=== PATIENT | female | born 1980 | race African-American/Black ===

== ENCOUNTER 2018-05-21 23:38 | Inpatient (IN) | payer OTHER ==
[~2018-05-21] VITALS: Ht 157.5 cm; Wt 95.0 kg
--- NOTE | ~2018-05-21 | EKG ---
[address] [address] ELECTROCARDIOGRAM REPORT Name: FERMÍN LAWTON Room #: 218-P ADM IN M.R.#: [id number] Admission: 05/22/18 Attend Phys: Boris Hodge MD Discharge: Date of : 78 Report #: [id number] THIS REPORT FOR: //name// [facility] ED Test Date: 2018-05-22 Test Time: 01:11:41 Pat Name: FERMÍN LAWTON Department: Room: 218 Gender: F Contracting Support Specialist: Filiberto METZGER : 1980 Requested By: Louis Ferrer Order Number: [id number] MD: Shane White Measurements Intervals [place] Rate: 76 P: NV: QRS: -56 QRSD: 140 T: 87 QT: 453 QTc: 510 Interpretive Statements sinus rhythm with PACs. Nonspecific IVCD with LAD No previous ECG available for comparison Electronically Signed On 05-22-2018 14:22:14 POLICE RADIO DISPATCHER by Shane White [email or web address] <ELECTRONICALLY SIGNED> By: Shane White MD 05/22/18 1422 0111 0111 Shane White MD /YUNIOR
--- NOTE | ~2018-05-21 | HC ---
[facility] [place] [address] [place] [address] CONSULTATION Name: FERMÍN LAWTON Room #: 218-P [facility] IN M.R.#: [id number] Admission: 05/22/18 Attend Phys: Boris Hodge MD Discharge: Date of : 78 Report #: [id number] THIS REPORT FOR: //name// CC: Boris Hodge Javier Akkulugari DATE OF SERVICE: 05/22/2018 REASON FOR CONSULTATION: Life-threatening hyperkalemia and end-stage renal disease. HISTORY OF PRESENT ILLNESS: Those were obtained from the medical record as the patient is not able to provide me with any history. She is running through episodes of hypoglycemia. She has acute mental status issue. She presented to the Emergency Room last night complaining of weakness throughout her body. She is a dialysis patient, maintained on hemodialysis every Saturday, Saturday and Saturday. As obtained out, she stays in the [facility]. She is utilizing left IJ tunneled catheter. She refused to her dialysis yesterday. She presented to the Emergency Room where she was found to have a life-threatening hyperkalemia with a potassium level of 8.7 on presentation. I am being asked to manage her end-stage renal disease. PAST MEDICAL HISTORY: 1. Diabetes mellitus. 2. Hypertension. 3. End-stage renal disease, maintained on dialysis. 4. . 5. Anxiety. MEDICATIONS: 1. Amlodipine. 2. Aspirin. 3. Atorvastatin. 4. Carvedilol. 5. Entresto. 6. Lasix. 7. Renvela. 8. Levothyroxine. 9. Albuterol. FAMILY HISTORY: Unobtainable given the patient's mental status. SOCIAL HISTORY: Unobtainable given the patient's mental status. REVIEW OF SYSTEMS: Completely unobtainable given the patient's mental status. [facility] [address] [place] [address] CONSULTATION Name: FERMÍN LAWTON Room #: 218-P [facility] IN [facility]#: [id number] Admission: 05/22/18 Attend Phys: Boris Hodge MD Discharge: Date of : 78 Report #: [id number] PHYSICAL EXAMINATION: GENERAL: The patient is confused. She is not answering questions. She has acute mental status changes with a blood sugar running in the 32. VITAL SIGNS: Blood pressure is 150/87, temperature 37.2. HEAD AND NECK: No bruit, no thyromegaly. CHEST: Left IJ tunneled catheter. No crackles. CARDIOVASCULAR: No rub detected. Regular. ABDOMEN: Soft, nontender. LOWER EXTREMITIES: +4 edema. LABORATORY VALUES: Reviewed. Hemoglobin is 9.7. Sodium on presentation was 131, potassium of 8.7, BUN was 85, creatinine was 9.6. She is still running into issues with her hypoglycemia and most recent blood sugar readings were 32, 38, 91, 133, 81. ASSESSMENT, IMPRESSION AND PLAN: 1. Life-threatening hyperkalemia in an end-stage renal disease patient in need for emergent dialysis. 2. Hypoglycemia 3. Diabetes mellitus. 4. Hypertension. 5. Noncompliance. 6. The patient received appropriate therapy for her hyperkalemia including calcium gluconate. I will initiate the appropriate emergent dialysis treatment for the patient. We will reevaluate her labs after dialysis. 7. Might need to move to the ICU. 8. Keep on D10 given her persistent hypoglycemia. 9. We will continue to follow along. <ELECTRONICALLY SIGNED> By: Adilene Calderon MD 05/25/18 0811 1001 1152 Adilene Calderon MD /nt
[2018-05-21 23:40] VITALS: BP 178/100
[2018-05-21] MEDS ORDERED: HUMALOG KW100 UNIT/1 SUBQ (23:55)
[2018-05-21] MEDS ORDERED: ASPIR 8181 MG PO (23:56)
[2018-05-21] MEDS ORDERED: LANTUS SOL100 UNIT/1 SUBQ (23:56)
[2018-05-21] MEDS ORDERED: NORVASC2.5 MG PO (23:56)
[2018-05-21] MEDS ORDERED: PHOSLO667 MG PO (23:57)
[2018-05-21] MEDS ORDERED: COREG25 MG PO (23:57)
[2018-05-21] MEDS ORDERED: ATORVASTATIN CA40 MG PO (23:57)
[2018-05-21] MEDS ORDERED: CHANTIX0.5 MG PO (23:58)
[2018-05-21] MEDS ORDERED: LASIX 40 MG TAB40 M2 PO (23:59)
[2018-05-21] MEDS ORDERED: ENTRESTO 24 MG1 EACH PO (23:59)
[2018-05-22] MEDS ORDERED: RENAGEL800 MG PO
[2018-05-22] MEDS ORDERED: OXYCODONE PO (00:01)
[2018-05-22] MEDS ORDERED: NEURONTIN 300300 M1 PO (00:01)
[2018-05-22] MEDS ORDERED: HYDRALAZINE 2525 MG PO (00:02)
[2018-05-22] MEDS ORDERED: EFFEXOR XR37.5 MG PO (00:03)
[2018-05-22] MEDS ORDERED: ISOSORBIDE DINI30 MG PO (00:03)
[2018-05-22] MEDS ORDERED: SYNTHROID75 MCG PO (00:03)
[2018-05-22] MEDS ORDERED: HYDROXYZINE HCL25 M1 PO (00:04)
[2018-05-22] MEDS ORDERED: VITAMIN D3400 UNIT PO (00:04)
[2018-05-22] MEDS ORDERED: LORAZEPAM 0.50.5 M1 PO (00:05)
[2018-05-22] MEDS ORDERED: TYLENOL325 M1 PO (00:05)
[2018-05-22] MEDS ORDERED: ONDANSETRON HCL4 M2 PO (00:06)
[2018-05-22] MEDS ORDERED: PROAIR HFA8.5 GM INH (00:06)
[2018-05-22 00:37] LABS: HEMOGLOBIN 9.7 gm/dL (12.0-15.0); MCH 32.1 pg (26.0-34.0); MCHC 33.4 g/dL (28.0-37.0); MCV 96.2 fL (80.0-100.0); RBC 3.01 mil/uL (4.20-5.00); RDW 15.1 % (10.5-14.5); WBC 8.6 thou/uL (4.0-11.0)
[2018-05-22 00:45] LABS: ALBUMIN 2.6 g/dL (3.4-5.0); CALCIUM 8.6 mg/dL (8.5-10.1); CREATININE 9.6 mg/dL (0.6-1.0); TOTAL BILIRUBIN 0.3 mg/dL (<0.1-1.0); TOTAL PROTEIN 6.8 g/dL (6.4-8.2)
[2018-05-22 01:44] LABS: POTASSIUM 8.7 mmol/L (3.5-5.1)
[2018-05-22 03:24] VITALS: BP 167/100
[2018-05-22 04:57] LABS: CALCIUM 8.4 mg/dL (8.5-10.1); CREATININE 9.7 mg/dL (0.6-1.0)
[2018-05-22 04:59] LABS: POTASSIUM 8.2 mmol/L (3.5-5.1)
[2018-05-22 08:00] VITALS: BP 151/87
[2018-05-22 16:00] VITALS: BP 178/110
[2018-05-22 16:05] VITALS: BP 186/100
[2018-05-22 18:29] LABS: HEMATOCRIT 28.1 % (37.0-47.0); HEMOGLOBIN 9.4 gm/dL (12.0-15.0); MCH 32.1 pg (26.0-34.0); MCHC 33.3 g/dL (28.0-37.0); MCV 96.3 fL (80.0-100.0); RBC 2.92 mil/uL (4.20-5.00); RDW 14.8 % (10.5-14.5); WBC 6.5 thou/uL (4.0-11.0)
[2018-05-22 18:46] LABS: ALBUMIN 2.2 g/dL (3.4-5.0); ANION GAP 8 mmol/L (7-16); BUN 40 mg/dL (7-18); CALCIUM 8.1 mg/dL (8.5-10.1); CHLORIDE 98 mmol/L (98-107); CO2 30 mmol/L (21-32); GLUCOSE 117 mg/dL (74-106); MAGNESIUM 2.3 mg/dL (1.8-2.4); SGOT 44 U/L (15-37); SGPT < 6 U/L (30-65); SODIUM 136 mmol/L (136-145); TOTAL BILIRUBIN 0.3 mg/dL (<0.1-1.0); TOTAL PROTEIN 5.9 g/dL (6.4-8.2)
[2018-05-22 18:47] LABS: CREATININE 5.3 mg/dL (0.6-1.0); POTASSIUM 5.4 mmol/L (3.5-5.1)
[2018-05-22 20:30] VITALS: BP 183/96
[2018-05-22] MEDS ORDERED: RENVELA800 MG PO (20:46)
[2018-05-22] MEDS ORDERED: CHANTIX0.5 MG PO (20:49)
[2018-05-22] MEDS ORDERED: ROXICODONE5 M2 PO (20:58)
[2018-05-23 00:45] VITALS: BP 143/66
[2018-05-23 04:35] VITALS: BP 162/87
[2018-05-23 06:38] LABS: HEMATOCRIT 24.7 % (37.0-47.0); MCH 31.2 pg (26.0-34.0); MCHC 32.5 g/dL (28.0-37.0); MCV 96.1 fL (80.0-100.0); RBC 2.57 mil/uL (4.20-5.00); RDW 14.5 % (10.5-14.5); WBC 6.7 thou/uL (4.0-11.0)
[2018-05-23 06:43] LABS: CALCIUM 7.7 mg/dL (8.5-10.1); CREATININE 5.8 mg/dL (0.6-1.0); MAGNESIUM 2.3 mg/dL (1.8-2.4); POTASSIUM 5.9 mmol/L (3.5-5.1)
[2018-05-23 08:13] VITALS: BP 154/82
[2018-05-23 12:57] VITALS: BP 205/103
[2018-05-23 17:00] VITALS: BP 157/89
[2018-05-23 20:45] VITALS: BP 199/98
[2018-05-24 04:54] VITALS: BP 176/86
[2018-05-24 06:33] LABS: HEMATOCRIT 25.9 % (37.0-47.0); HEMOGLOBIN 8.6 gm/dL (12.0-15.0); MCHC 33.2 g/dL (28.0-37.0); MCV 96.4 fL (80.0-100.0); RBC 2.69 mil/uL (4.20-5.00); RDW 14.3 % (10.5-14.5); WBC 7.1 thou/uL (4.0-11.0)
[2018-05-24 06:52] LABS: ALBUMIN 2.4 g/dL (3.4-5.0); CALCIUM 8.4 mg/dL (8.5-10.1); CREATININE 4.3 mg/dL (0.6-1.0); PHOSPHORUS 4.9 mg/dL (2.5-4.9); POTASSIUM 5.3 mmol/L (3.5-5.1)
[2018-05-24 07:10] VITALS: BP 172/99
[2018-05-24 11:47] VITALS: BP 177/95
[2018-05-24 17:03] VITALS: BP 165/92
[2018-05-24 20:45] VITALS: BP 165/105
[2018-05-25 00:36] VITALS: BP 119/61
[2018-05-25 04:45] VITALS: BP 188/105
[2018-05-25 06:57] LABS: HEMATOCRIT 27.3 % (37.0-47.0); MCH 31.9 pg (26.0-34.0); MCHC 33.1 g/dL (28.0-37.0); MCV 96.5 fL (80.0-100.0); RBC 2.82 mil/uL (4.20-5.00); RDW 13.9 % (10.5-14.5); WBC 9.7 thou/uL (4.0-11.0)
[2018-05-25 07:06] LABS: CALCIUM 8.9 mg/dL (8.5-10.1); CREATININE 4.9 mg/dL (0.6-1.0); MAGNESIUM 2.3 mg/dL (1.8-2.4)
[2018-05-25 07:12] LABS: POTASSIUM 6.1 mmol/L (3.5-5.1)
[2018-05-25 08:06] VITALS: BP 190/116
[2018-05-25 12:05] VITALS: BP 206/154
[2018-05-25 16:03] VITALS: BP 171/104
[2018-05-25 19:42] VITALS: BP 154/87
[2018-05-26 03:11] VITALS: BP 186/108
[2018-05-26 03:58] LABS: CALCIUM 8.1 mg/dL (8.5-10.1); POTASSIUM 5.4 mmol/L (3.5-5.1)
[2018-05-26 04:01] LABS: CREATININE 3.7 mg/dL (0.6-1.0)
[2018-05-26 04:25] LABS: HEMATOCRIT 25.3 % (37.0-47.0); HEMOGLOBIN 8.3 gm/dL (12.0-15.0); MCH 31.5 pg (26.0-34.0); MCHC 32.8 g/dL (28.0-37.0); RBC 2.63 mil/uL (4.20-5.00); RDW 14.5 % (10.5-14.5)
[2018-05-26 12:25] VITALS: BP 189/108
[2018-05-26 19:45] VITALS: BP 126/84; BP 163/88
[2018-05-27 04:49] VITALS: BP 190/102
[2018-05-27 08:00] VITALS: BP 170/117
[2018-05-27 11:40] VITALS: BP 174/96
[2018-05-27 16:30] VITALS: BP 160/99
[2018-05-27 19:55] VITALS: BP 128/52
[2018-05-28 04:45] VITALS: BP 191/101
[2018-05-28 11:54] VITALS: BP 169/110
[2018-05-28 16:27] VITALS: BP 193/112
[2018-05-28 19:31] VITALS: BP 179/111
[2018-05-29 06:08] VITALS: BP 189/111
[2018-05-29 07:15] VITALS: BP 157/103
[2018-05-29] MEDS ORDERED: OXYCODONE-APAP1 EAC6 PO (10:32)
[2018-05-29] MEDS ORDERED: CEFAZ1 ADV IV (10:32)
[2018-05-29 11:12] VITALS: BP 177/106
== END 2018-05-29 12:55 | DRG 640 ==
LOC: ER 23:38 → 2N 05-22 01:36 → EROBS 05-22 01:36 → 2N 05-22 02:10
PROVIDERS: Emergency Medicine; Hospitalist; Internal Medicine; Nurse Practitioner Acute Care
PROC: 5A1D70Z Performance of Urinary Filtration, Intermittent, Less than 6 Hours Per Day (ICD-10-PCS; principal; 2018-05-22)
PROC: 5A1D70Z Performance of Urinary Filtration, Intermittent, Less than 6 Hours Per Day (ICD-10-PCS; 2018-05-23)
PROC: 5A1D70Z Performance of Urinary Filtration, Intermittent, Less than 6 Hours Per Day (ICD-10-PCS; 2018-05-25)
PROC: 5A1D70Z Performance of Urinary Filtration, Intermittent, Less than 6 Hours Per Day (ICD-10-PCS; 2018-05-26)
PROC: 5A1D70Z Performance of Urinary Filtration, Intermittent, Less than 6 Hours Per Day (ICD-10-PCS; 2018-05-28)
DX: E87.5 Hyperkalemia (principal); N18.6 End stage renal disease; I50.22 Chronic systolic (congestive) heart failure; G93.40 Encephalopathy, unspecified; M84.459A Pathological fracture, hip, unspecified, initial encounter for fracture; I13.2 Hypertensive heart and chronic kidney disease with heart failure and with stage 5 chronic kidney disease, or end stage renal disease; F41.9 Anxiety disorder, unspecified; E11.649 Type 2 diabetes mellitus with hypoglycemia without coma; F32.9 Major depressive disorder, single episode, unspecified; E03.9 Hypothyroidism, unspecified; J45.909 Unspecified asthma, uncomplicated; D63.8 Anemia in other chronic diseases classified elsewhere; E11.22 Type 2 diabetes mellitus with diabetic chronic kidney disease; B95.61 Methicillin susceptible Staphylococcus aureus infection as the cause of diseases classified elsewhere; Y84.1 Kidney dialysis as the cause of abnormal reaction of the patient, or of later complication, without mention of misadventure at the time of the procedure; Z91.19 Patient's noncompliance with other medical treatment and regimen; Z86.14 Personal history of Methicillin resistant Staphylococcus aureus infection; Y92.89 Other specified places as the place of occurrence of the external cause; Z79.82 Long term (current) use of aspirin; Z79.899 Other long term (current) drug therapy; Z88.8 Allergy status to other drugs, medicaments and biological substances; Z91.040 Latex allergy status; Z87.891 Personal history of nicotine dependence
CPT/HCPCS: 10081; 32100

== ENCOUNTER 2018-08-31 19:15 | Emergency (ER) | payer OTHER ==
[~2018-08-31] VITALS: Ht 157.5 cm; Wt 90.3 kg
[~2018-08-31 19:15] MED LIST: ASPIR 8181 MG PO; ATORVASTATIN CA40 MG PO; CEFAZ1 ADV IV; CHANTIX0.5 MG PO; COREG25 MG PO; EFFEXOR XR37.5 MG PO; ENTRESTO 24 MG1 EACH PO; HUMALOG KW100 UNIT/1 SUBQ; HYDRALAZINE 2525 MG PO; HYDROXYZINE HCL25 M1 PO; ISOSORBIDE DINI30 MG PO; LANTUS SOL100 UNIT/1 SUBQ; LASIX 40 MG TAB40 M2 PO; LORAZEPAM 0.50.5 M1 PO; NEURONTIN 300300 M1 PO; NORVASC2.5 MG PO; ONDANSETRON HCL4 M2 PO; OXYCODONE PO; OXYCODONE-APAP1 EAC6 PO; PHOSLO667 MG PO; PROAIR HFA8.5 GM INH; RENAGEL800 MG PO; RENVELA800 MG PO; ROXICODONE5 M2 PO; SYNTHROID75 MCG PO; TYLENOL325 M1 PO; VITAMIN D3400 UNIT PO
[2018-08-31 20:07] LABS: ABSOLUTE NEUTROPHILS 5.3 thou/uL (1.4-8.2); BASOPHILS 0.5 % (0.0-2.0); EOSINOPHILS 3.5 % (0.0-3.0); HEMATOCRIT 36.1 % (37.0-47.0); HEMOGLOBIN 11.5 gm/dL (12.0-15.0); LYMPHOCYTES 8.9 % (24.0-44.0); MCH 30.2 pg (26.0-34.0); MCHC 31.8 g/dL (28.0-37.0); MCV 94.9 fL (80.0-100.0); MONOCYTES 9.5 % (1.0-8.0); PLATELET COUNT 114 thou/uL (150-400); POLYS 77.6 % (36.0-66.0); RBC 3.81 mil/uL (4.20-5.00); RDW 15.4 % (10.5-14.5); WBC 6.9 thou/uL (4.0-11.0)
[2018-08-31 20:11] LABS: ANION GAP 13 mmol/L (7-16); BUN 57 mg/dL (7-18); CALCIUM 8.4 mg/dL (8.5-10.1); CHLORIDE 98 mmol/L (98-107); CO2 24 mmol/L (21-32); CREATININE 5.8 mg/dL (0.6-1.0); GLUCOSE 188 mg/dL (74-106); POTASSIUM 5.5 mmol/L (3.5-5.1); SODIUM 135 mmol/L (136-145)
[2018-08-31 20:17] LABS: APTT 35.7 Seconds (24.5-32.8); INR 1.1
[2018-08-31 20:19] LABS: ALBUMIN 2.7 g/dL (3.4-5.0); MAGNESIUM 2.2 mg/dL (1.8-2.4); SGOT 31 U/L (15-37); SGPT 18 U/L (30-65); TOTAL BILIRUBIN 0.5 mg/dL (<0.1-1.0); TOTAL PROTEIN 6.9 g/dL (6.4-8.2); TROPONIN-I <0.06 ng/mL (<0.06)
[2018-08-31] MEDS ORDERED: AMOXICILLIN875 MG PO (21:41)
[2018-08-31] MEDS ORDERED: PROMETHAZINE-C473 ML PO (21:41)
[2018-08-31] MEDS ORDERED: FLOVENT DISKU100 MCG INH (21:41)
[2018-08-31 22:30] VITALS: BP 161/100
--- NOTE | 2018-09-01 09:04 | EKG ---
[place] [address] [facility] [place] [address] ELECTROCARDIOGRAM REPORT Name: FERMÍN LAWTON Room #: DEP [facility] Jones#: [id number] ������������������ Admission: 08/31/18 ������������������ Attend Phys: Discharge: 08/31/18 ������������������ Date of : 78 Report #: [id number] ����������������������������������������������������������������� [id number] THIS REPORT FOR: //name// [facility] ED Test Date: 2018-08-31 Test Time: 19:25:53 Pat Name: FERMÍN LAWTON Department: Room: Gender: F Lens Engraver: AUDIE : 1980 Requested By: Ajith Simmons Order Number: [id number] MD: Damon Kincaid Measurements Intervals [place] Rate: 90 P: 15 LA: 166 QRS: -31 QRSD: 94 T: 75 QT: 377 QTc: 462 Interpretive Statements Sinus rhythm Left axis deviation Nonspecific T wave abnormality Compared to ECG 05/22/2018 01:11:41 Atrial premature complexes are no longer present Electronically Signed On 09-01-2018 9:03:58 CDT by Damon Kincaid [email or web address] ��������������������������������������������� <ELECTRONICALLY SIGNED> ���������������������������������������� By: Damon Kincaid MD, [facility] ��������������������������������������������� 09/01/18902 24 24 Damon Kincaid MD, FACC /EPI
== END 2018-08-31 22:30 ==
LOC: ER 19:15
PROVIDERS: Emergency Medicine
DX: J45.909 Unspecified asthma, uncomplicated (principal); R04.2 Hemoptysis; I13.2 Hypertensive heart and chronic kidney disease with heart failure and with stage 5 chronic kidney disease, or end stage renal disease; N18.6 End stage renal disease; E88.09 Other disorders of plasma-protein metabolism, not elsewhere classified; R10.84 Generalized abdominal pain; R19.7 Diarrhea, unspecified; E10.22 Type 1 diabetes mellitus with diabetic chronic kidney disease; E03.9 Hypothyroidism, unspecified; F32.9 Major depressive disorder, single episode, unspecified; F41.9 Anxiety disorder, unspecified; I50.22 Chronic systolic (congestive) heart failure; E21.3 Hyperparathyroidism, unspecified; G62.9 Polyneuropathy, unspecified; M19.90 Unspecified osteoarthritis, unspecified site; G89.4 Chronic pain syndrome; Z86.2 Personal history of diseases of the blood and blood-forming organs and certain disorders involving the immune mechanism; Z98.890 Other specified postprocedural states; Z99.2 Dependence on renal dialysis; Z87.891 Personal history of nicotine dependence; Z91.040 Latex allergy status; Z91.013 Allergy to seafood

== ENCOUNTER 2018-12-05 19:42 | Inpatient (IN) | payer OTHER ==
[~2018-12-05] VITALS: Ht 157.5 cm; Wt 88.9 kg
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
[~2018-12-05 19:42] MED LIST changes: +AMOXICILLIN875 MG PO; +FLOVENT DISKU100 MCG INH; +PROMETHAZINE-C473 ML PO
[2018-12-05 19:43] VITALS: BP 130/76
[2018-12-05] MEDS ORDERED: OMEPRAZOLE40 MG PO (19:54)
[2018-12-05] MEDS ORDERED: MELATONIN3 MG PO (19:54)
[2018-12-05] MEDS ORDERED: PRO-STAT LIQUID30 ML PO (19:55)
[2018-12-05] MEDS ORDERED: CLONIDINE0.1 PO (19:56)
[2018-12-05] MEDS ORDERED: HALLS3.2 MG PO (19:57)
[2018-12-05] MEDS ORDERED: ROBITUSSIN100 MG/53 PO (19:57)
[2018-12-05] MEDS ORDERED: ATARAX PO (19:59)
[2018-12-05] MEDS ORDERED: ONDANSETRON HCL4 M2 PO (20:00)
[2018-12-05] MEDS ORDERED: OXYCODON-ACETA1 EAC1 PO (20:00)
[2018-12-05] MEDS ORDERED: MIRALAX17 GM PO (20:01)
[2018-12-05] MEDS ORDERED: VENTOLIN HFA 1818 GM INH (20:02)
[2018-12-05] MEDS ORDERED: ZYRTEC 10 MG TA10 MG PO (20:03)
[2018-12-05] MEDS ORDERED: NEURONTIN 400400 M1 PO (20:04)
[2018-12-05] MEDS ORDERED: ENTRESTO 24 MG1 EACH PO (20:04)
[2018-12-05] MEDS ORDERED: FLOVENT HFA 4444 MCG INH (20:04)
[2018-12-05] MEDS ORDERED: LASIX 40 MG TAB40 M2 PO (20:04)
[2018-12-05] MEDS ORDERED: IMDUR 30 MG TAB30 M1 PO (20:05)
[2018-12-05] MEDS ORDERED: HYDRALAZINE 2525 MG PO (20:05)
[2018-12-05] MEDS ORDERED: ATIVAN0.5 MG PO (20:06)
[2018-12-05] MEDS ORDERED: LANTUS SUBQ (20:07)
[2018-12-05 20:22] LABS: ABSOLUTE NEUTROPHILS 6.4 thou/uL (1.4-8.2); BASOPHILS 0.9 % (0.0-2.0); EOSINOPHILS 7.3 % (0.0-3.0); HEMATOCRIT 35.9 % (37.0-47.0); HEMOGLOBIN 11.9 gm/dL (12.0-15.0); LYMPHOCYTES 8.7 % (24.0-44.0); MCH 31.7 pg (26.0-34.0); MCHC 33.2 g/dL (28.0-37.0); MCV 95.5 fL (80.0-100.0); MONOCYTES 6.8 % (1.0-8.0); PLATELET COUNT 139 thou/uL (150-400); POLYS 76.3 % (36.0-66.0); RBC 3.76 mil/uL (4.20-5.00); RDW 15.8 % (10.5-14.5); WBC 8.3 thou/uL (4.0-11.0)
[2018-12-05 20:50] LABS: BUN 96 mg/dL (7-18); CALCIUM 8.3 mg/dL (8.5-10.1); CHLORIDE 90 mmol/L (98-107); CO2 22 mmol/L (21-32); CREATININE 8.5 mg/dL (0.6-1.0); GLUCOSE 112 mg/dL (74-106); TROPONIN-I <0.06 ng/mL (<0.06)
[2018-12-05 20:55] LABS: ANION GAP 5 mmol/L (7-16)
[2018-12-05 20:56] LABS: POTASSIUM 7.1 mmol/L (3.5-5.1); SODIUM 117 mmol/L (136-145)
--- NOTE | 2018-12-05 20:58 | NUR ---
CRITICAL LAB VALUES - K+ 7.1 AND NA - 117. PHYSICIAN AND NURSE NOTIFIED
[2018-12-06] VITALS (7 sets, daily range): BP systolic 119–145; BP diastolic 75–103
--- NOTE | 2018-12-06 05:33 | NUR ---
ADMIT:PT ADMITTED FROM ED WITH ESRD,HYPERKALEMIA,NON-COMPLIANT.PT RESIDED AT [facility].SHE DOES DIALYSIS THREE TIMES A WEEK BUT SHE DID MISS ALL THREE DAYS THIS WEEK,LAST TIME SHE HAD DIALYSIS WAS LAST SATURDAY JUST BECAUSE SHE GOT TIRED OF IT SHE STATED.SHE HAS A DAILYSIS CATHETER TO LEFT UPPER CHEST THAT IS MISSING A SUTURE.SHE ALSO HAS A FISTULA LEFT FA,THAT HAS BRUIL AND THRILL BUT SHE DOES NOT USE IT FOR DIALYSIS SINCE IT HURTS PER PT.ASSESSMENT ADMISSION COMPLETED.VSS.SR ON MONITOR.PT REFUSED TO WEAR GOWN.HAS MUTIPLE SCRATCHES TO HER ENTIRE BODY FROM BEING DRY AND ITCHY.PAIN MEDS GIVEN FOR C/O PAIN TO LEFT FA WITH PARTIAL RELIEF.POC IS TO HAVE DIALYSIS THIS AM.
[2018-12-06 06:12] LABS: CALCIUM 8.2 mg/dL (8.5-10.1); CREATININE 8.7 mg/dL (0.6-1.0)
[2018-12-06 06:25] LABS: POTASSIUM 7.3 mmol/L (3.5-5.1)
[2018-12-06 09:20] LABS: ALBUMIN 3.2 g/dL (3.4-5.0); TOTAL PROTEIN 6.5 g/dL (6.4-8.2)
[2018-12-06 09:47] LABS: TSH 12.586 uIU/mL (0.358-3.740)
--- NOTE | 2018-12-06 11:05 | EKG ---
[address] [address] ELECTROCARDIOGRAM REPORT Name: FERMÍN LAWTON Room #: 211-P ADM IN M.R.#: [id number] ������������������ Admission: 12/05/18 ������������������ Attend Phys: Joe Batres MD Discharge: ������������������ Date of : 78 Report #: [id number] ����������������������������������������������������������������� [id number] THIS REPORT FOR: //name// [facility] ED Test Date: 2018-12-05 Test Time: 20:03:47 Pat Name: FERMÍN LAWTON Department: Room: 211 Gender: F Asw/Asuw Tactical Air Controller: EVANGELINA : 1980 Requested By: Mukund Sinha Order Number: [id number] MD: Chris Simons Measurements Intervals [place] Rate: 63 P: 6 MD: 221 QRS: -57 QRSD: 121 T: 80 QT: 444 QTc: 455 Interpretive Statements Sinus rhythm Prolonged MD interval Nonspecific IVCD with LAD Inferior infarct, old Anterior infarct, old Baseline wander in lead(s) V6 Compared to ECG 08/31/2018 19:25:53 First degree AV block now present Intraventricular conduction delay now present Myocardial infarct finding now present Left-axis deviation no longer present T-wave abnormality no longer present Electronically Signed On 12-06-2018 11:05:05 CDT by Chris Simons [email or web address] ��������������������������������������������� <ELECTRONICALLY SIGNED> ���������������������������������������� By: Chris Simons MD ��������������������������������������������� 12/06/18 1105 02 02 Chris Simons MD /EPI
--- NOTE | 2018-12-06 18:44 | NUR ---
ASSUMED CARE OF PATIENT AT 0700. PATIENT IS A&O X 4. ASSESSMENTS CHARTED. PATIENT IS SR ON TELE. PATIENT HAD HEMODIALYSIS THIS AM WITH 3L OFF. PATIENT TOLERATED WELL. PATIENT COMPLAINS OF BILATERAL HAND NUMBNESS WITH PINS AND NEEDLE SENSATION. PATIENT TAKING OXYCODONE WITH MINIMAL RELIEF. PATIENT HAS LIMB LEAD ALERT ON LEFT ARM. PATIENT IS ANEURIC. SHE ADMITTED THAT SHE MISSED DIALYSIS ALL WEEK BECAUSE, "I JUST DIDN'T WANT TO GO". PATIENT TO CONTINUE WITH POC.
[2018-12-07 01:26] VITALS: BP 138/82
[2018-12-07 05:01] VITALS: BP 135/71
[2018-12-07 05:30] LABS: CALCIUM 7.5 mg/dL (8.5-10.1); CREATININE 6.3 mg/dL (0.6-1.0); MAGNESIUM 2.2 mg/dL (1.8-2.4); POTASSIUM 4.9 mmol/L (3.5-5.1)
[2018-12-07 08:34] VITALS: BP 139/74
--- NOTE | 2018-12-07 08:58 | NUR ---
RECEIVED PT'S CARE AT 1923; PT. SLEEPING DURING REPORT; DURING ASSESSMENT AOX4; REQUESTED PRN PAIN MEDICATION; EDUCATED ABOUT ANTI-ANXIETY MEDICATION & PAIN POSSIBLE EFFECTS WHEN TAKING IT TOGETHER; ST. UNDERSTANDING; PRN PAIN MEDICATION GIVEN FIRST; ABLE TO REST THROUGH THE NIGHT WITH EYES CLOSE; ASSESSMENT CHARGED; FOLLOWING POC; PASSED ON REPORT TO CHRISTA WASHINGTON.
[2018-12-07 11:54] VITALS: BP 121/81
[2018-12-07 13:29] VITALS: BP 121/81
--- NOTE | 2018-12-07 18:28 | NUR ---
ASSUMED CARE OF PATIENT AT 0700. PATIENT IS A&O X 4. PATIENT IS RESTING COMFORTABLY IN BED. SHE COMPLAINS OF BILATERAL HAND/WRIST PAIN, "FEELING LIKE PINS AND NEEDLES" WHICH SHE TAKES OXYCODONE FOR. SHE STATES MINIMAL RELIEF FROM THIS. PATIENT IS WHEELCHAIR AT HER FACILITY, HOWEVER SHE MOVES HERSELF AROUND WELL IN BED INDEPENDENTLY. PATIENT [facility]SFERRED BACK TO [facility] AT 1600. LAZARO AT [facility] ACCEPTED RETURN TRANSFER AND SHADI TOOK REPORT. PATIENT STATES THAT SHE FEELS BETTER THAN SHE DID ON ADMISSION.
== END 2018-12-07 17:39 | DRG 640 ==
LOC: ER 19:42 → EROBS 22:34 → 2N 12-06 00:39
PROVIDERS: Emergency Medicine; Internal Medicine; Nurse Practitioner Family; ADMIT Internal Medicine
PROC: 5A1D70Z Performance of Urinary Filtration, Intermittent, Less than 6 Hours Per Day (ICD-10-PCS; principal; 2018-12-06)
DX: E87.5 Hyperkalemia (principal); N18.6 End stage renal disease; I13.2 Hypertensive heart and chronic kidney disease with heart failure and with stage 5 chronic kidney disease, or end stage renal disease; I50.22 Chronic systolic (congestive) heart failure; N25.81 Secondary hyperparathyroidism of renal origin; E10.22 Type 1 diabetes mellitus with diabetic chronic kidney disease; E03.9 Hypothyroidism, unspecified; J45.909 Unspecified asthma, uncomplicated; E10.40 Type 1 diabetes mellitus with diabetic neuropathy, unspecified; E78.5 Hyperlipidemia, unspecified; M19.90 Unspecified osteoarthritis, unspecified site; E87.1 Hypo-osmolality and hyponatremia; E87.8 Other disorders of electrolyte and fluid balance, not elsewhere classified; D69.6 Thrombocytopenia, unspecified; D63.8 Anemia in other chronic diseases classified elsewhere; F32.9 Major depressive disorder, single episode, unspecified; F43.10 Post-traumatic stress disorder, unspecified; I27.20 Pulmonary hypertension, unspecified; F41.9 Anxiety disorder, unspecified; F17.210 Nicotine dependence, cigarettes, uncomplicated; E66.01 Morbid (severe) obesity due to excess calories; Z68.35 Body mass index [BMI] 35.0-35.9, adult; Z98.891 History of uterine scar from previous surgery; Z87.81 Personal history of (healed) traumatic fracture; Z86.14 Personal history of Methicillin resistant Staphylococcus aureus infection; Z91.15 Patient's noncompliance with renal dialysis; Z87.442 Personal history of urinary calculi; Z79.51 Long term (current) use of inhaled steroids; Z79.4 Long term (current) use of insulin; Z79.82 Long term (current) use of aspirin; Z79.899 Other long term (current) drug therapy; Z91.040 Latex allergy status; Z91.013 Allergy to seafood; Z83.3 Family history of diabetes mellitus; Z82.49 Family history of ischemic heart disease and other diseases of the circulatory system
CPT/HCPCS: 10081; 32100